=== PATIENT | female | born 2005 | race Caucasian/White ===

== ENCOUNTER 2025-04-16 13:03 | Emergency (ER) | payer BC, SELFPAY ==
[2025-04-16 13:06] VITALS: BP 147/108
--- NOTE | 2025-04-16 13:29 | ED.GENMED ---
History of Present Illness
General
Chief Complaint: Headache
Source: patient
Exam Limitations: none
Time Seen by Provider: 04/16/25 13:12
History of Present Illness
History of Present Illness:
19yoF with a history of POTS, ADHD, and migraines presenting for evaluation of a headache. She reports that her headaches have been more frequent over the past several months and she is now having an aura. Her current headache started 3 days ago.
Her headache is located at the base of neck which is slightly unusual for her. She is also experiencing nausea. Patient does not see a neurologist but is prescribed Ubrelvy by her PCP. She took 2 doses of Ubrelvy yesterday without any relief.
She also took some ibuprofen which did not help. She was seen at urgent care prior to arrival and was sent to the ED for evaluation. Headache is currently rated as an 8.5 out of 10 in severity. She denies this being the worst headache of life.
No associated visual changes, fevers, neck symptoms, vomiting, trauma.
Phy Exam
Physical Exam
Physical Exam:
Well appearing, laughing with friend, no apparent distress
General Physical Exam
General Presentation: well appearing and no apparent distress
General age: appears stated age
General Skin: warm and dry
General Habitus: normal
General Mental: alert
ENT Exam
ENT Exam: normocephalic and other (No meningismus )
Eye Exam
Eye Exam: PERRL and conjunctiva normal
Pulmonary Exam
Pulmonary Exam: no respiratory distress
Neurological Exam
Neurological Exam: alert, no motor deficits and speech normal
Lisa Coma Scale
Eye Opening: Spontaneous
Verbal Response: Oriented
Motor Response: Obeys Commands
GCS Total Score: 15
Skin Exam
Skin Exam: normal color and warm/dry
Psychiatric Exam
Psychiatric Exam: normal mood/affect
Course
Orders/Labs/Results
Orders:
Orders
04/16/25 13:28
CT Head W/o Iv Contrast Urgent
Comment:
Reason For Exam: acute headache
0.9% Sodium Chloride 1000 ml [Nss] 1,000 ml IV BOLUS
Diphenhydramine [Benadryl] 25 mg IV NOW STA
Ketorolac [Toradol] 15 mg IV NOW STA
Magnesium Sulfate 2 Gram/50 ml [Magnesium Sulfate] 2 gram in 50 ml IV NOW
Metoclopramide [Reglan] 10 mg IV NOW STA
04/16/25 13:29
Test Result ONCE
04/16/25 13:38
HCG, Serum Qualitative Screen Urgent
Vital Signs
Initial and Last Documented VS:
Initial Vital Signs
Temp Pulse Resp BP Pulse Ox
98 F 102 20 147/108 98
04/16/25 13:06 04/16/25 13:06 04/16/25 13:06 04/16/25 13:06 04/16/25 13:06
Last Documented Vital Signs
Temp Pulse Resp BP Pulse Ox
98 F 102 20 147/108 98
04/16/25 13:06 04/16/25 13:06 04/16/25 13:06 04/16/25 13:06 04/16/25 13:31
MDM/Problems Addressed
Differential Diagnosis Includes:
19yoF here with headache x 3 days. Hx of migraines and headache have become more frequent. Sent here by urgent care. Headache at base of neck which is a slightly different location than normal but not worst of life. She is extremely well appearing
and is laughing with friend during exam. No focal neuro deficits or nuchal rigidity noted. Differential diagnosis includes but is not limited to: migraine, tension headache, brain mass, less likely subarachnoid hemorrhage
Initial ED plan: Check HCG and CT head. IV migraine cocktail and reassess.
*Pulse Oximetry
SaO2: 98
Oxygen Mode of Delivery: Room air
Patient hypoxic: no
*Critical Care Note
Total Time (30-74mins, 75-104mins- exclusive of procedures): Not Applicable
Update Note
Update Note:
CT head negative for acute findings. Headache down to a 5/10 in severity and patient requesting to go home and rest. She has been taking Ubrelvy quite frequently and may need maintenance headache medications. She was advised to f/u with neurology
and PCP. Patient discharged in stable condition.
ED Attending Note
-
Portions of this chart may have been created with voice recognition software.� Occasional wrong word or��sound alike� substitutions may have occurred due to the inherent limitations of voice recognition software.
Discharge Plan
Departure
Patient Disposition: Home (Routine Discharge)
Date of Disposition: 04/16/25
Time of Disposition: 16:04
Patient with high blood pressure during this ER visit?: Yes
Discharge Problem:
Recurrent headache
Instructions: Headache, Adult (DC)
Referrals:
Peter Alexander MD [Active, Neurology]
NONE,* [Family Provider, Internal Medicine]
Activity Restrictions/Additional Instructions:
Please call tomorrow to schedule a follow-up appointment with your family doctor and a neurologist. Return to the ER with any new or worsening symptoms.
Interventions
Interventions:
*Risk Screen - Suicide Last Done: 04/16/25 13:06
*General Assessment Last Done: 04/16/25 16:15
*Neglect/Abuse Screening Last Done: 04/16/25 13:06
*ED- Fall Risk Assessment Last Done: 04/16/25 16:15
*ED COVID-19 Vaccine History Last Done: 04/16/25 16:15
*ED Influenza Vaccine History Last Done: 04/16/25 16:15
*Nursing Disposition Last Done: 04/16/25 16:15
ED- Neurological Assessment Last Done: 04/16/25 16:12
Discharge Date and Time
Discharge Date/Time: 04/16/25 16:17
Print Language: FINNISH
[2025-04-16] MEDS: BENADRYL 25 MG IV (13:45)
[2025-04-16] MEDS: REGLAN 10 MG IV (13:45)
[2025-04-16] MEDS: MAGNESIUM SULFATE 50 IV (13:46)
[2025-04-16] MEDS: NSS 1000 IV (13:46)
[2025-04-16] MEDS: TORADOL 15 MG IV (13:46)
[2025-04-16 13:58] LABS: HCG, Serum Qualitative Screen Negative
== END 2025-04-16 16:17 | disposition home or self-care (01) ==
LOC: EMR 13:03
PROVIDERS: Physician Assistant; EMERGENCY PHYSICIAN Emergency Medicine
DX: R51.9 Headache, unspecified (principal); G90.A Postural orthostatic tachycardia syndrome [POTS]; F90.9 Attention-deficit hyperactivity disorder, unspecified type
CPT/HCPCS: 99284; 96365; 96375 ×3; 96361; 70450; 84703